=== PATIENT | female | born 1955 | race Caucasian/White ===

== ENCOUNTER 2017-02-06 12:59 | Day surgery (SDC) | payer OTHER ==
[~2017-02-06] VITALS: Ht 157.5 cm; Wt 51.9 kg
[~2017-02-06 12:59] MED LIST: FOLI-49 PO; GABAPENTIN; LEVO25TA59 PO; OMEPRAZOLE PO; SPIR100T31 PO; SPIRONOLACTONE PO; ZOFRAN
[2017-02-06 13:45] VITALS: Ht 157.5 cm; Wt 51.9 kg
[2017-02-06] MEDS ORDERED: ONDA4TAB95 PO (14:04)
[2017-02-06] MEDS ORDERED: SIMV-39 PO (14:04)
[2017-02-06] MEDS ORDERED: AMIT25TA9 PO (14:04)
[2017-02-06 14:32] VITALS: BP 103/63; PULSE 85; RESP 16
[2017-02-06] MEDS ORDERED: PROPOFOL 20 ML ONE (15:38)
[2017-02-06] MEDS ORDERED: LIDOCAINE 2% (SDV) 5 ML INJ ONE (15:38)
--- NOTE | 2017-02-06 15:56 | OPPN ---
Date/Time of Note Date/Time of Note DATE: 02/06/17 TIME: 15:52 Proc Note GI Free Text/Dictation Preoperative Diagnosis: * Surveillance for esophageal varices * History of alcoholic cirrhosis * Postoperative Diagnosis: Assessment: * No evidence of esophageal varices * Mild gastritis versus portal hypertensive gastropathy. * Rule out H. pylori infection. Biopsies obtained * Otherwise normal EGD Plan: * continue present regimen * Review pathology * Surveillance EGD in 6-12 months Procedure Performed: EGD with biopsies Surgeon: Anika Burnett MD Tower Watchman: None Second Admin Secretary: None Anesthesia/Sedation: Moderate sedation by anesthesiologist Tourniquet Time: NA Estimated Blood Loss: None Transfusion Required: No Specimens: Gastric antrum Grafts/Implants: None Tubes/Drains: NA Complications: None Pt. Condition Post Procedure: Stable Disposition: Home After informed consent, with the patient/relatives understanding the procedure, its indications, potential risks and complications, including but not limited to : allergic reaction, bleeding, perforation or infection, and after all pertinent questions were answered to the patients satisfaction, the patient/ relatives signed witnessed informed consent. Following this, premedication was administered slowly IV push under careful cardiovascular and respiratory monitoring with pulse oximetry, automatic blood pressure, and patternmaker hand. Once the sedative effect was achieved the patient was place in the left lateral decubitus, the panendoscope was introduced and advanced under visual control. Careful examination of the upper gastrointestinal tract, both on insertion as well as withdrawal of the instrument disclosing the following findings: ESOPHAGUS: the mucosa of the entire esophagus was carefully examined and showed the following findings: the mucosa appears within normal limits. There is no evidence of esophagitis, varices, neoplasm, or stricture. No Hiatal Hernia identified. STOMACH: Upon entrance to the stomach air was insufflated, the gastric hidlago distended normally. The mucosa of the fundus, body and antrum of the stomach was carefully examined both head-on and on retroflexion, and showed the following findings: There is mild erythema and congestion of the mucosa of the antrum. Biopsies were obtained to rule out H. pylori infection. Otherwise the mucosa appears within normal limits with no abnormalities. There is no evidence of ulcers or neoplasm. PYLORUS: The pylorus was carefully examined and showed the following findings: []the pylorus appears patent and within normal limits, with no evidence of gastric outlet obstruction. DUODENUM: The duodenal mucosa was carefully examined in the duodenal bulb as well as the second portion of the duodenum and showed the following findings: []the mucosa appears unremarkable with no evidence of duodenitis, ulcer or neoplasm. Procedure date: Feb 06, 2017 ANIKA BURNETT MD Feb 06, 2017 15:56
[2017-02-06 16:21] VITALS: BP 111/83; PULSE 83; RESP 14
== END 2017-02-06 17:00 | disposition home or self-care (01) ==
LOC: GIL 12:59
PROVIDERS: ATTEND Internal Medicine Gastroenterology
DX: K29.70 Gastritis, unspecified, without bleeding (principal)
CPT/HCPCS: 43239; 88305; 88312; Z7610

== ENCOUNTER 2017-08-29 12:16 | Day surgery (SDC) | END 2017-08-29 19:02 | disposition home or self-care (01) ==

== ENCOUNTER 2018-01-14 05:36 | Day surgery (SDC) | END 2018-01-14 10:40 | disposition home or self-care (01) ==

== ENCOUNTER 2018-12-10 11:59 | Day surgery (SDC) | payer OTHER ==
[~2018-12-10] VITALS: Ht 157.5 cm; Wt 50.2 kg
[~2018-12-10 11:59] MED LIST changes: +AMBIEN; +BIOTIN; +LEVO25TA PO; -LEVO25TA59 PO; +LEVO50TA7 PO; +LYRI100 PO; +METOCLOPRAMIDE; +MVI; +ONDA4TAB95 PO; +SIMV80TA18 PO; -SPIR100T31 PO; +SPIR100T4 PO; +SPIR50TA PO
[2018-12-10 13:31] VITALS: Ht 157.5 cm; Wt 50.2 kg
[2018-12-10] MEDS ORDERED: VITAMIN D3 (13:41)
[2018-12-10] MEDS ORDERED: SIMVASTATIN (13:41)
[2018-12-10] MEDS ORDERED: ALENDRONATE (13:41)
[2018-12-10] MEDS ORDERED: SPIRONOLACTONE (13:41)
[2018-12-10] MEDS ORDERED: VITAMIN C (13:41)
[2018-12-10] MEDS ORDERED: IBUPROFEN (13:41)
[2018-12-10] MEDS ORDERED: DULOXETINE (13:41)
[2018-12-10] MEDS ORDERED: FOLIC ACID (13:41)
[2018-12-10] MEDS ORDERED: GABAPENTIN (13:41)
[2018-12-10] MEDS ORDERED: VITAMIN E (13:41)
[2018-12-10] MEDS ORDERED: OMEPRAZOLE (13:41)
[2018-12-10] MEDS ORDERED: ZOLPIDEM (13:41)
[2018-12-10] MEDS ORDERED: HYDROCODON (13:41)
[2018-12-10] MEDS ORDERED: LEVOTHYROXINE (13:41)
[2018-12-10] MEDS ORDERED: FISH OIL (13:41)
[2018-12-10] MEDS ORDERED: LORAZEPAM (13:41)
[2018-12-10] MEDS ORDERED: ONDANSETRON (13:41)
[2018-12-10] MEDS ORDERED: VITAMIN B COMPLEX (13:41)
[2018-12-10] MEDS ORDERED: ALBUTEROL (13:41)
[2018-12-10 14:14] VITALS: BP 124/78; PULSE 78; RESP 16
--- NOTE | 2018-12-10 15:42 | PREAC ---
Date/Time of Note Date/Time of Note DATE: 12/10/18 TIME: 15:41 Anesthesia Eval and Record Evaluation Time Pre-Procedure Interview DATE: 12/10/18 TIME: 15:41 Age 63 Sex female NPO: 8 hrs Preoperative diagnosis screening Planned procedure egd, colonoscopy Past Medical History Past Medical History: Includes Endo: Hypothyroid Hepatic: Cirrhosis GI: GERD Heme: Anemia Surgery & Anesthesia Issues No known issue Meds Anticoagulation: No Beta Silvia within 24 hr: No Reason Beta Silvia not given: Pt. not on B-Silvia Reported Medications [Zolpidem] No Conflict Check 12/10/18 [Vitamin D3] No Conflict Check 12/10/18 [Spironolactone] No Conflict Check 12/10/18 [Simvastatin] No Conflict Check 12/10/18 [Ondansetron] No Conflict Check 12/10/18 [Omeprazole] No Conflict Check 12/10/18 [Lorazepam] No Conflict Check 12/10/18 [Levothyroxine] No Conflict Check 12/10/18 [Ibuprofen] No Conflict Check 12/10/18 [Hydrocodon] No Conflict Check 12/10/18 [Gabapentin] No Conflict Check 12/10/18 [Fish Oil] No Conflict Check 12/10/18 [Vitamin B Complex] No Conflict Check 12/10/18 [Vitamin C] No Conflict Check 12/10/18 [Vitamin E] No Conflict Check 12/10/18 [Folic Acid] No Conflict Check 12/10/18 [Duloxetine] No Conflict Check 12/10/18 [Alendronate] No Conflict Check 12/10/18 [Albuterol] No Conflict Check 12/10/18 Discontinued Reported Medications Levothyroxine Sodium* (Levothyroxine Sodium*) 50 Mcg Tablet, 50 MCG PO BEFORE BREAKFAST, #30 TAB 01/14/18 Spironolactone* (Aldactone*) 50 Mg Tablet, 50 MG PO DAILY, #30 TAB 01/14/18 Pregabalin* (Lyrica*) 100 Mg Capsule, 100 MG PO TID, CAP 01/14/18 [Mvi] No Conflict Check 08/29/17 [Biotin] No Conflict Check 08/29/17 [Gabapentin] No Conflict Check 08/29/17 [Metoclopramide] No Conflict Check 08/29/17 [Ambien] No Conflict Check 08/29/17 Simvastatin* (Simvastatin*) 80 Mg Tablet, 20 MG PO QHS, #30 TAB 02/06/17 Ondansetron Hcl* (Ondansetron Hcl*) 4 Mg Tablet, 4 MG PO Q4H PRN for NAUSEA AND OR VOMITING, TAB 02/06/17 [Zofran] No Conflict Check 05/09/16 [Gabapentin] No Conflict Check 05/09/16 Spironolactone* (Spironolactone*) 100 Mg Tablet, 100 MG PO DAILY, TAB 09/28/15 [Omeprazole] No Conflict Check, PO DAILY 12/15/14 [Spironolactone] No Conflict Check, PO DAILY 12/15/14 Levothyroxine Sodium* (Synthroid*) 25 Mcg Tablet, 25 MCG PO AC BREAKFAST, TAB 09/15/14 Folic Acid* (Folic Acid*) 1 Mg Tablet, 1 MG PO DAILY, TAB 09/15/14 Meds reviewed: Yes Allergies Coded Allergies: tramadol (Verified Allergy, Intermediate, Rash, itching, 12/10/18) Penicillins (Verified Allergy, Unknown, HIVES, 12/10/18) Allergies Reviewed: Yes Labs/Studies Labs Reviewed: Reviewed by anesthesiologist test: Negative Studies: ECG Pre-procedure Exam Last vitals Vital Signs Date Temp Pulse Resp B/P (MAP) Pulse Ox O2 O2 Flow FiO2 Time Delivery Rate 12/10/18 98.5 78 16 124/78 99 Room Air 14:14 (93) Airway: Adequate mouth opening, Adequate thyromental dist Mallampati: Mallampati II Teeth: Normal Lung: Normal Heart: Normal ASA Physical Status ASA physical status: 3 Emergency: None Planned Anesthetic General/MAC: Mask, MAC Pre-operative Attestations Prior to commencing anesthesia and surgery, the patient was re-evaluated, there was verification of: *The patient's identity *The results of appropriate recent lab work and preoperative vital signs *The above evaluation not changing prior to induction *Anesthetic plan, risk benefits, alternative and complications discussed with patient/family; questions answered; patient/family understands, accepts and wishes to proceed. ALEJANDRA JALLOH Dec 10, 2018 15:42
[2018-12-10] MEDS ORDERED: PROPOFOL 40 ML ONE (15:44)
[2018-12-10] MEDS ORDERED: LIDOCAINE 100 MG SYRINGE ONE (15:44)
[2018-12-10 16:35] VITALS: BP 115/67; PULSE 76; RESP 18
--- NOTE | 2018-12-11 08:02 | PAC ---
Date/Time of Note Date/Time of Note DATE: 12/11/18 TIME: 08:02 Post-Anesthesia Notes Post-Anesthesia Note Last documented vital signs Vital Signs Date Temp Pulse Resp B/P (MAP) Pulse Ox O2 O2 Flow FiO2 Time Delivery Rate 12/10/18 76 18 115/67 98 Room Air 16:35 (83) 12/10/18 98.5 14:14 Activity: WNL Respiratory function: WNL Cardiovascular function: WNL Mental status: Baseline Pain reasonably controlled: Yes Hydration appropriate: Yes Nausea/Vomiting absent: Yes ALEJANDRA JALLOH Dec 11, 2018 08:02
== END 2018-12-10 16:50 | disposition home or self-care (01) ==
LOC: GIL 11:59
PROVIDERS: ATTEND Internal Medicine Gastroenterology
DX: Z12.11 Encounter for screening for malignant neoplasm of colon (principal); K64.8 Other hemorrhoids; K20.8 Other esophagitis; E03.9 Hypothyroidism, unspecified
CPT/HCPCS: 43239; 45378; 88305; J2001; Z7610